=== PATIENT | female | born 1945 | race Caucasian/White ===

== ENCOUNTER 2017-08-23 09:49 | Inpatient (IN) | payer OTHER ==
[2017-08-23 10:07] LABS: PLATELET COUNT 309 10^3/uL (150-400)
--- NOTE | 2017-08-23 10:14 | EDPHY ---
General Narrative: The patient was evaluated and managed by the physician furniture removalist's assistant. I have reviewed this chart and I agree with the findings and plan of care as documented , as indicated by my signature. I am the secondary supervising physician. ( Yeni Townsend) CHIEF COMPLAINT: Weakness, cold symptoms HISTORY OF PRESENT ILLNESS: Patient presents by EMS and is seen at time of arrival. She complains of cold like symptoms with cough, congestion, runny nose and aches. This has been present for 2 weeks. Started while she was in [place], which she return from 1 week ago. She was treated with Zithromax in [place]. Minimal improvement. She also complains of increasing weakness and ongoing difficulty using her legs. The difficulty with her legs is described as a difficult gait. This has been present for nearly 2 years. She has had an MRI in 2016 with no answers. She has ongoing workup for this without any definitive diagnosis. No sudden changes this. No neck pain. No back pain. No difficulty with urination at home. No saddle anesthesia. No retention of bowel or bladder. No other associated complaints or modifying factors. REVIEW OF SYSTEMS: Ten systems reviewed and are negative unless otherwise noted in the HPI PCP: Dr. Zulma Bazzi SPECIALISTS: Dr. Miranda PAST MEDICAL HISTORY: Antiphospholipid, lupus, dyslipidemia PAST SURGICAL HISTORY: No recent surgical history SOCIAL HISTORY: Nonsmoker. Recently travel to [place] FAMILY HISTORY: Noncontributory EXAMINATION General Appearance: Alert, no distress Head: normocephalic, atraumatic Eyes: Pupils equal and round, no conjunctival pallor or injection ENT, Mouth: Mucous membranes moist. Airway patent Neck: Normal inspection, supple, non-tender Respiratory: Lungs are clear to auscultation. No wheezing, rhonchi or crackles. No diminishment Cardiovascular: Regular rate and rhythm. No murmur Gastrointestinal: Abdomen is soft and nontender Back: non-tender, no bony abnormalities Neurological: GCS 15. Cranial nerves 2-12 grossly intact. A&O, nonfocal, unsteady gait. Patellar reflexes symmetric. Strength is symmetric in the arms. Strength is symmetric in the legs at 4/5. Skin: Warm and dry, no rash. No petechiae or purpura Extremities: Nontender, no pedal edema Psychiatric: Mood and affect normal DIFFERENTIAL DIAGNOSES: Including but not limited to influenza, URI, bronchitis, pneumonia, viral syndrome, demyelination, SLE MDM: 9:55 a.m. Cough and cold-like symptoms that have been present for nearly 2 weeks. This is status post treatment with Z-Branden in [place]. She also has increasing weakness , which is been present for 2 years. I reviewed the MRI of her brain from 2016 which is unremarkable for any acute findings. She is in no acute distress at this time. Laboratory studies pending. Chest x-ray pending. Urine pending 11:15 a.m. Patient has ambulated in the emergency department. She is mildly unsteady but this was reportedly baseline and unchanged per patient. She has attempted a urine sample but had diarrhea, thus the urine sample was contaminated. Her laboratory studies reveal no leukocytosis. She has normal renal function electrolytes. She does have a CK that is greater than 5000. She has no chest pain. Her influenza test is pending. Chest x-ray reveals bronchitis with no evidence of pneumonia. I have re-evaluated the patient at this time and she is resting comfortably. I will order IV fluid resuscitation, encourage urine sample and discussed with Dr. Townsend 11:45 a.m. Case discussed with Dr. Townsend. As IV fluid infusing 12:15 p.m. Patient's influenza test is positive for flu A. At this time her oxygenation is 95% on room air. I will discuss with her primary care physician 12:45 p.m. Patient re-evaluated. Vital signs remained stable but she still feels very weak and unable to provide a urine sample. Continue with IV fluid resuscitation and the bladder scan. 1:20 p.m. Case discussed with Dr. Garcia. He will admit the patient to his service for observation care. She is admitted in stable condition. 2:30 p.m. Patient has been evaluated by hospitalist. They are waiting to determine if the patient will stay in patient will be discharged home. At this time she will attempt to urinate again 3:30 p.m. Patient not been able urinate. Bladder scan at this time reveals nearly 700 mL as a urine. Awaiting the determination of her inpatient status. I recommend Uribe catheter placement at this time. 3:45 p.m. Confirm the patient has been admitted to Dr. Silva. The urinary retention will be addressed on the floor per charge nurse. She is admitted in stable condition. SUPERVISION: Patient was independently examined, but I discussed the case with my secondary supervising physician Dr. Townsend ([facility]) - Objective Vital Signs: Initial Vital Signs Temperature (C) 98.1 F 08/23/17 09:49 Heart Rate 76 08/23/17 09:49 Respiratory Rate 18 08/23/17 09:49 Blood Pressure 130/74 H 08/23/17 09:49 O2 Sat (%) 95 08/23/17 09:49 O2 Delivery Mode Room Air Allergies/Adverse Reactions: No Known Allergies Allergy (Verified 08/23/17 09:58) Home Medications: Medication Instructions Recorded Furosemide [Lasix 40 MG (RX)] 40 mg PO DAILY 05/26/12 Hydroxychloroquine Sulfate 200 mg PO BID 05/26/12 [Plaquenil 200 mg (RX)] Olmesartan Medoxomil [Benicar 40 40 mg PO DAILY 05/26/12 mg] Acetaminophen [Tylenol ES 500 mg 500 - 1,000 mg PO TID 08/23/17 (*)] Herbals/Supplements -Info Only 1 ea PO DAILY 08/23/17 Multivitamins [Multivitamin (*)] 1 each PO DAILY 08/23/17 Warfarin Sodium [Coumadin 2.5MG 2.5 mg PO TUTH@08/23/17 (*)] Warfarin Sodium [Coumadin 5MG (*)] 5 mg PO SUMOWEFRSA@08/23/17 amLODIPine BESYLATE [Norvasc 5 mg 5 mg PO DAILY 08/23/17 (*)] Laboratory Results: Laboratory Results 08/23/17 09:50 08/23/17 09:50 Medications Given: Acetaminophen (Tylenol) 650 mg PO Q4HRS PRN PRN Reason: Pain, Mild/Fever, Can Take PO Stop: 02/19/18 13:36 Last Admin: 08/23/17 22:00 Dose: 650 mg Benzonatate (Tessalon Pearles) 100 mg PO TID PRN PRN Reason: Cough, Mild Stop: 02/19/18 21:07 Last Admin: 08/24/17 15:50 Dose: 100 mg Guaifenesin (Mucinex) 1,200 mg PO BID SHAHRIAR Stop: 02/19/18 20:59 Last Admin: 08/24/17 08:44 Dose: 1,200 mg Hydroxychloroquine Sulfate (Plaquenil) 200 mg PO BID SHAHRIAR PRN Reason: Protocol Stop: 09/22/17 20:59 Last Admin: 08/24/17 08:45 Dose: 200 mg Sodium Chloride (Ns) 1,000 mls @ 100 mls/hr IV CONT SHAHRIAR Stop: 02/19/18 13:44 Last Admin: 08/24/17 06:27 Dose: 1,000 mls Olmesartan (Benicar) 40 mg PO DAILY SHAHRIAR Stop: 02/20/18 08:59 Last Admin: 08/24/17 08:45 Dose: 40 mg Warfarin Sodium (Coumadin) 2.5 mg PO TUTH@21 SHAHRIAR Stop: 02/19/18 20:59 Last Admin: 08/23/17 22:00 Dose: 2.5 mg Discontinued Medications Enoxaparin Sodium (Lovenox) 40 mg SC DAILY [facility] Stop: 02/20/18 08:59 Last Admin: 08/24/17 08:45 Dose: 40 mg Sodium Chloride (Ns) 500 mls @ 1,000 mls/hr IV EDNOW ONE PRN Reason: Protocol Stop: 08/23/17 11:44 Last Admin: 08/23/17 11:17 Dose: 500 mls Sodium Chloride (Ns) 1,000 mls @ 0 mls/hr IV EDNOW ONE; Wide Open PRN Reason: Protocol Stop: 08/23/17 12:59 Last Admin: 08/23/17 13:06 Dose: 1,000 mls Sodium Chloride (Ns) 1,000 mls @ 3,000 mls/hr IV ONCE ONE Stop: 08/23/17 13:56 Last Admin: 08/23/17 15:18 Dose: 1,000 mls Oseltamivir Phosphate (Tamiflu) 75 mg PO EDNOW ONE Stop: 08/23/17 13:31 Last Admin: 08/23/17 17:03 Dose: Not Given Departure - Departure Disposition: [facility] Acute Clinical Impression: Influenza A, Urinary retention Condition: Good
[2017-08-23 10:58] LABS: CREATINE KINASE 5340 IU/L (0-156)
[2017-08-23] MEDS ORDERED: NS 500 ML IV ONE (11:15)
[2017-08-23] MEDS ORDERED: NS 1,000 ML IV ONE ×2 (12:58→13:37)
[2017-08-23] MEDS ORDERED: ONDANSETRON DISINTEGRATING 4 MG TAB PO PRN (13:37)
[2017-08-23] MEDS ORDERED: ONDANSETRON 4 MG/2 ML VIAL IVP PRN (13:37)
[2017-08-23] MEDS ORDERED: IPRATROPIUM/ALBUTEROL 3 ML DEYVIAL IH PRN (15:14)
[2017-08-23] MEDS: OSELTAMIVIR PHOSPHATE 75 MG CAP PO ONE ×2 (15:17→17:03)
--- NOTE | 2017-08-23 15:42 | GHP ---
[f rep st] HISTORY AND PHYSICAL DATE OF ADMISSION: 08/23/2017 CHIEF COMPLAINT: Weakness and congestion. HISTORY OF PRESENT ILLNESS: This is a 72-year-old female with a history of well -controlled lupus, who presents with over 2 weeks of various pulmonary and respiratory symptoms. The patient recently traveled to [place] where she developed nasal congestion, headache, and mild cough. She was seen at an Urgent Care in [place] and treated with a Z-Branden. The patient reports some improvement in her symptoms and upon returning home to [place] 7 days prior to this presentation, began developing worsening congestion, headaches, mild nonproductive cough, weakness and lethargy. The patient reports that these symptoms seem to fluctuate a bit in the course of the last 7 days, and ultimately she presented today as they had not entirely resolved. The patient has had some watery diarrhea described as nonbloody. Denies abdominal pain. Denies nausea, vomiting. Denies dysuria, hematuria, rashes, lower extremity edema. Her also has an upper respiratory infection with cough and subjective fevers. Patient denies any history of lung disease or problems. PAST MEDICAL HISTORY: 1. Lupus, well controlled on Plaquenil. 2. Antiphospholipid antibody syndrome on chronic anticoagulation. 3. Dyslipidemia. SOCIAL HISTORY: Occasional alcohol. No tobacco or illicit drugs. FAMILY HISTORY: Positive for Sjogren's in a sister and heart disease. REVIEW OF SYSTEMS: A 10-point review of systems is negative with the exception of that reported in the HPI. PHYSICAL EXAMINATION: VITAL SIGNS: Blood pressure 123/67, heart rate 79, respiratory rate 18, 95% on room air, 36.8. GENERAL: This is an obese appearing middle-aged female in no acute distress. HEENT: Exam is notable for dry mucous membranes. Eye exam is negative for any icterus. CARDIAC: Heart sounds are distant, but regular. PULMONARY: Clear to auscultation bilaterally. GASTROINTESTINAL: Positive bowel sounds. ABDOMEN: Soft and nontender. MUSCULOSKELETAL: Negative for any lower extremity edema. SKIN: Exam is negative for any rashes. NEUROLOGIC: The patient is alert and oriented x3. PSYCHIATRIC: She is pleasant and cooperative on interview and examination. DATA: White count 5.9, hematocrit 46.6, platelets of 308. Creatinine of 0.8, sodium of 141. CK at 5340. Flu A is detected by nasal swab. Chest x-ray, which I personally reviewed and interpreted shows no acute infiltrates or edema. Radiology comments on moderate airways disease. ASSESSMENT AND PLAN: This is a 72-year-old female presenting with weakness and upper respiratory symptoms. 1. Acute influenza A. Based on the patient's reported history, I suspect she is a week into this upper respiratory infection. Will not treat acutely with oseltamivir. Can provide supportive treatment with inhaled beta agonist and Mucinex for cough. 2. Elevated CK. As best I can tell by history this is likely from immobility and lethargy in the home. The patient has received some fluid resuscitation in the emergency department. Will recheck her CK. If trending down no further intervention is necessary as her renal function is normal. 3. Lupus. Will continue patient's home Plaquenil dosing without alteration. 4. Antiphospholipid antibody syndrome. We will continue patient's chronic anticoagulation without variation. 5. Acute Urinary retention - unclear the cause or severity - IVF and bladder scan for straight cath. encourage ambulation. 6. Prophylaxis. Patient is on full-dose anticoagulation. 7. Diet: Regular. DISPOSITION: I expect a less than 2 midnights if the patient's CK is trending down and she is ambulating without difficulty. I have discussed the case with the emergency room physician. Patient will be triaged for observation to the medical floor. /[id number]/MODL MTDD
--- NOTE | 2017-08-23 15:43 | CPEKG ---
Heart Rate: 75 RR Interval: 800 P-R Interval: 228 QRSD Interval: 100 QT Interval: 416 QTC Interval: 465 P Watson: 95 QRS Watson: 30 T Wave Watson: -39 EKG Severity - ABNORMAL ECG - EKG Impression: SINUS RHYTHM EKG Impression: LOW VOLTAGE IN FRONTAL LEADS EKG Impression: NONSPECIFIC T ABNORMALITIES, DIFFUSE LEADS EKG Impression: Artifact Electronically Signed By: Yeni Townsend 23-Aug-2017 16:27:02
[2017-08-23 16:17] LABS: CREATINE KINASE 5381 IU/L (0-156)
[2017-08-23] MEDS: NS 1,000 ML IV SCH (20:59)
[2017-08-23] MEDS: WARFARIN SODIUM 2.5 MG TAB PO SCH (22:00)
[2017-08-23] MEDS: HYDROXYCHLOROQUINE SULFATE 200 MG TAB PO SCH (22:00)
[2017-08-23] MEDS: BENZONATATE 100 MG CAP PO PRN (22:00)
[2017-08-23] MEDS: ACETAMINOPHEN 325 MG TAB PO PRN (22:00)
[2017-08-23] MEDS: guaiFENesin 600 MG TAB.ER PO SCH (22:00)
[2017-08-24 04:35] LABS: PLATELET COUNT 265 10^3/uL (150-400)
[2017-08-24] MEDS: NS 1,000 ML IV SCH (06:27)
[2017-08-24] MEDS: guaiFENesin 600 MG TAB.ER PO SCH ×2 (08:44→19:56)
[2017-08-24] MEDS: HYDROXYCHLOROQUINE SULFATE 200 MG TAB PO SCH ×2 (08:45→19:56)
[2017-08-24] MEDS: OLMESARTAN MEDOXOMIL 20 MG TAB PO SCH (08:45)
[2017-08-24] MEDS ORDERED: ENOXAPARIN 40 MG/0.4 ML SYR SC SCH (09:00)
--- NOTE | 2017-08-24 10:28 | ASMTCASEMG ---
Living Arrangements What is your living Answers: With Partner arrangement? Who do you live with? Type Of Residence What kind of residence do Answers: House you live in? Discharge Plan Comments Coordination Status Comments Notes: Pt is a 72 y/o female admitted for influenxa A, eleveated CK and weakness. Pts is currently also at [facility] for the flu. Pt has been having more falls at home. Needs are TBD at this time. Therapies have been ordered and awaiting recommendations. CM to follow. Plan: TBD Date Signed: 08/24/2017 10:27 AM Electronically Signed By:DEISY Parks
[2017-08-24 11:38] LABS: INR 2.29 (0.83-1.16); PROTIME(PATIENT) 25.2 SEC (12.0-15.0)
[2017-08-24 12:15] LABS: CREATINE KINASE 2120 IU/L (0-156)
--- NOTE | 2017-08-24 14:40 | ASMTCMCOM ---
CM Note CM Note Notes: CM spoke w/ Winsome, daughter regarding d/c POC. CM informed Winsome that PT is recommending SNF at this time. Winsome wanted CM to hold off on speaking to pt about the recommendations. CM provided Winsome with other d/c options such as HC and home w/ supervision. CM provided [facility] blue book and list of skilled and unskilled HC agencies. CM to follow. Plan: TBD Date Signed: 08/24/2017 02:40 PM Electronically Signed By:DEISY Parks
[2017-08-24] MEDS: BENZONATATE 100 MG CAP PO PRN (15:50)
--- NOTE | 2017-08-24 17:02 | HOSPPROG ---
Hospitalist Progress Note Assessment/Plan: #Rhabdomyolysis and elevated Ck Cont IVF #Influenza A -not on tamiflu -resp tate she is doing well #Hypoxemia, resolved -bronchodilators -Mucinex #S/p falls and generalized weakness -PT/OT #HTN, cont to monitor -hold Furosemide and Amlodipine Change to inpatient Subjective: working with PT. Daughter at bedside. resp tate she is doing better. Still with weakness. Good urine output Objective: Vital Signs Temp Pulse Resp BP Pulse Ox 36.6 C 63 17 111/57 L 93 08/24/17 15:53 08/24/17 15:53 08/24/17 07:50 08/24/17 15:53 08/24/17 15:53 Laboratory Results 08/24/17 04:05 08/24/17 04:05 08/23/17 08/24/17 08/25/17 05:59 05:59 05:59 Intake Total 4700 Output Total 1800 Balance 2900 PT 25.2 SEC (12.0-15.0) H 08/24/17 11:05 INR 2.29 (0.83-1.16) H 08/24/17 11:05 - Physical Exam Constitutional: no apparent distress Eyes: PERRL, EOMI Ears, Nose, Mouth, Throat: moist mucous membranes, hearing normal, ears appear normal Cardiovascular: regular rate and rhythym, no murmur, rub, or gallop Respiratory: no respiratory distress, no rales or rhonchi, clear to auscultation Gastrointestinal: normoactive bowel sounds, soft, non-tender abdomen, no palpable masses Skin: warm Musculoskeletal: generalized weakness Neurologic: AAOx3 Psychiatric: interacting appropriately, not anxious, not encephalopathic ICD10 Worksheet Patient Problems: Problems Problem Status Onset Influenza A Acute Urinary retention Acute
--- NOTE | 2017-08-24 17:39 | PDMN ---
Medical Necessity Medical necessity: Change to IP, as of 08/24/17, per MD; los >2 mn for ongoing management/tx of rhabdomyolysis, Influenza A, hypoxemia & generalized weakness s /p falls; admit for further monitoring, IVFs, supportive care & therapies; hx htn, lupus, antiphospholipid antibody syndrome on AC; per progress note & order 08/24/17
[2017-08-24] MEDS: GUAIFENESIN/DM 10 ML UDCUP PO PRN (18:37)
[2017-08-24] MEDS: WARFARIN SODIUM 5 MG TAB PO SCH (19:56)
[2017-08-25 04:54] LABS: CREATINE KINASE 1202 IU/L (0-156)
[2017-08-25 05:02] LABS: INR 2.29 (0.83-1.16); PROTIME(PATIENT) 25.2 SEC (12.0-15.0)
[2017-08-25] MEDS: OLMESARTAN MEDOXOMIL 20 MG TAB PO SCH (10:19)
[2017-08-25] MEDS: guaiFENesin 600 MG TAB.ER PO SCH ×2 (10:19→21:26)
[2017-08-25] MEDS: HYDROXYCHLOROQUINE SULFATE 200 MG TAB PO SCH ×2 (10:19→21:20)
[2017-08-25] MEDS: GUAIFENESIN/DM 10 ML UDCUP PO PRN (14:12)
--- NOTE | 2017-08-25 15:10 | HOSPPROG ---
Hospitalist Progress Note Assessment/Plan: #Rhabdomyolysis and elevated Ck -stop IVF due to cough which she has likely obtained from the IVF -recheck ck in the morning -no renal impairment noted #Influenza A -not on tamiflu -has developed a cough which is likely iatrogenic from IVF #Hypoxemia, resolved -bronchodilators -Mucinex #S/p falls and generalized weakness -PT/OT #HTN, cont to monitor, overall well controlled, off meds -hold Furosemide and Amlodipine Cont inpatient will likely need SNF Subjective: has developed a cough. no SOB. On RA. No pedal edema. Urinating well. Objective: Vital Signs Temp Pulse Resp BP Pulse Ox 36.7 C 67 18 121/67 H 95 08/25/17 08:00 08/25/17 08:00 08/25/17 08:00 08/25/17 08:00 08/25/17 08:00 Laboratory Results 08/25/17 04:12 08/24/17 08/25/17 08/26/17 05:59 05:59 05:59 Intake Total 550 Balance 550 PT 25.2 SEC (12.0-15.0) H 08/25/17 04:12 INR 2.29 (0.83-1.16) H 08/25/17 04:12 - Physical Exam Constitutional: no apparent distress Eyes: PERRL Ears, Nose, Mouth, Throat: moist mucous membranes, hearing normal Cardiovascular: regular rate and rhythym, No edema Respiratory: no respiratory distress, other (coarse) Gastrointestinal: normoactive bowel sounds, soft, non-tender abdomen Skin: warm Musculoskeletal: generalized weakness Neurologic: AAOx3 Psychiatric: interacting appropriately, not anxious, not encephalopathic ICD10 Worksheet Patient Problems: Problems Problem Status Onset Influenza A Acute Urinary retention Acute
--- NOTE | 2017-08-25 15:18 | ASMTCMCOM ---
CM Note CM Note Notes: CM met w/ pt for dispo planning. CM presented recommendations of PT and OT. Pt would like to d/c with [facility]. Referral made to [facility] and they are able to accept. CM spoke w/ Winsome, daughter regarding d/c plans. Daughter is agreeable to pt discharging home w/ HC. Plan: home w/ [facility], PT and OT Date Signed: 08/25/2017 03:18 PM Electronically Signed By:DEISY Parks
[2017-08-25] MEDS: WARFARIN SODIUM 2.5 MG TAB PO SCH (21:20)
[2017-08-25] MEDS: guaiFENesin/CODEINE PHOS 10 ML UDCUP PO PRN (21:24)
[2017-08-26 05:36] LABS: PLATELET COUNT 248 10^3/uL (150-400)
[2017-08-26 05:44] LABS: CREATINE KINASE 542 IU/L (0-156)
[2017-08-26] MEDS: OLMESARTAN MEDOXOMIL 20 MG TAB PO SCH (09:14)
[2017-08-26] MEDS: HYDROXYCHLOROQUINE SULFATE 200 MG TAB PO SCH ×2 (09:14→21:28)
[2017-08-26] MEDS: guaiFENesin 600 MG TAB.ER PO SCH ×2 (09:15→21:30)
[2017-08-26] MEDS: GUAIFENESIN/DM 10 ML UDCUP PO PRN (09:15)
[2017-08-26] MEDS ORDERED: PROTOCOL POTASSIUM 1 DOSE MISC PRN ×2 (11:30→12:02)
[2017-08-26] MEDS ORDERED: POTASSIUM CL 20 MEQ TAB ONE (11:44)
[2017-08-26] MEDS ORDERED: POTASSIUM CL 10 MEQ TAB PO ONE (12:25)
[2017-08-26] MEDS: ACETAMINOPHEN 325 MG TAB PO PRN (12:25)
[2017-08-26] MEDS ORDERED: PROTOCOL MAGNESIUM 1 DOSE IV PRN (12:54)
[2017-08-26] MEDS ORDERED: FUROSEMIDE 20 MG TAB PO ONE ×2 (14:14)
--- NOTE | 2017-08-26 14:17 | HOSPPROG ---
Hospitalist Progress Note Assessment/Plan: #Rhabdomyolysis and elevated Ck -off IVF -no renal impairment noted #Influenza A -not on tamiflu -has developed a cough which is likely iatrogenic from IVF #Cough, likely from IVF #Hypoxemia, resolved -bronchodilators -Mucinex #S/p falls and generalized weakness -PT/OT #HTN, cont to monitor, overall well controlled, off meds -Hold amlodipine Cont inpatient will likely d/c with [facility] tomorrow Will provide one time dose of Lasix today and consider restarting home dose Cont to hold amlodipine Subjective: feels better. + cough. + pedal edema. Has been of diuretics Objective: Vital Signs Temp Pulse Resp BP Pulse Ox 36.6 C 65 16 118/66 91 L 08/26/17 08:00 08/26/17 08:00 08/26/17 08:00 08/26/17 09:14 08/26/17 08:00 Laboratory Results 08/26/17 04:41 08/26/17 04:41 08/25/17 08/26/17 08/27/17 05:59 05:59 05:59 Intake Total 550 Balance 550 PT 25.2 SEC (12.0-15.0) H 08/25/17 04:12 INR 2.29 (0.83-1.16) H 08/25/17 04:12 - Physical Exam Constitutional: no apparent distress Eyes: PERRL Ears, Nose, Mouth, Throat: moist mucous membranes, hearing normal Cardiovascular: regular rate and rhythym, edema Respiratory: reduced air movement Gastrointestinal: normoactive bowel sounds, soft, non-tender abdomen Skin: warm Musculoskeletal: generalized weakness Neurologic: AAOx3 Psychiatric: interacting appropriately, not anxious, not encephalopathic, thought process linear Lymph, Heme, Immunologic: No petechiae ICD10 Worksheet Patient Problems: Problems Problem Status Onset Influenza A Acute Urinary retention Acute
[2017-08-26] MEDS ORDERED: FUROSEMIDE 40 MG TAB PO ONE (14:30)
--- NOTE | 2017-08-26 14:56 | ASMTCMCOM ---
CM Note CM Note Notes: Chart reviewed. Spoke with daughter Montse who is from out of town. Relayed discharge plan, recommendation is that she or her sister help develop legal plan for future medical decisions, plan for this patient is home with [facility] when medically stable. CM to follow. Date Signed: 08/26/2017 02:55 PM Electronically Signed By:Priya De La Cruz RN
[2017-08-26] MEDS: guaiFENesin/CODEINE PHOS 10 ML UDCUP PO PRN (21:28)
[2017-08-26] MEDS: WARFARIN SODIUM 5 MG TAB PO SCH (21:28)
[2017-08-27 05:39] LABS: CREATINE KINASE 229 IU/L (0-156)
[2017-08-27 07:34] VITALS: BP 139/77; PULSE 66; RESP 16; TEMP 97.9; O2SAT 93
[2017-08-27] MEDS: guaiFENesin 600 MG TAB.ER PO SCH (08:50)
[2017-08-27] MEDS: OLMESARTAN MEDOXOMIL 20 MG TAB PO SCH (08:50)
[2017-08-27] MEDS: HYDROXYCHLOROQUINE SULFATE 200 MG TAB PO SCH (08:50)
[2017-08-27] MEDS ORDERED: POTASSIUM CL 10 MEQ TAB PO ONE (10:38)
[2017-08-27] MEDS ORDERED: FUROSEMIDE 40 MG/4 ML VIAL IVP ONE (14:46)
--- NOTE | 2017-08-27 14:56 | PDDCSUM ---
Discharge Summary Discharge Summary: 72 yo female admitted with rhabdomyolysis. treated with ivf. resolved. had some volume overload as lasix was held and ivf given. home meds have been restarted amlodipine was held will f/u with pcp next week d/c with [facility] #Rhabdomyolysis and elevated Ck -resolved #Influenza A -not on tamiflu as symptoms started several weeks ago #Cough, likely from IVF, much improved with diuretics #Hypoxemia, resolved -bronchodilators -Mucinex #S/p falls and generalized weakness -PT/OT #HTN, cont to monitor, overall well controlled, off meds -Hold amlodipine #chronic AC: cont coumadin. Exam: VSS, RA NAD AAOX3 RRR COARSE BREATH SOUNDS S/NT/ND 1 +EDEMA MEDS: SEE MED REC F/U: PER ABOVE TOTAL CARE TIME SPENT ON D/C IS 40 MINS
--- NOTE | 2017-08-27 15:04 | PDIAF ---
- Diagnosis Diagnosis: rhabomyolysis Code Status: Full Code - Medication Management Discharge Medications: Medications to Continue on Transfer Furosemide [Lasix 40 MG (*)] 40 mg PO DAILY 05/26/12 [Last Taken 08/22/17] Hydroxychloroquine Sulfate [Plaquenil 200 mg (*)] 200 mg PO BID 05/26/12 [Last Taken 08/23/17] Olmesartan Medoxomil [Benicar 40 mg] 40 mg PO DAILY 05/26/12 [Last Taken ] Acetaminophen [Tylenol ES 500 mg (*)] 500 - 1,000 mg PO TID 08/23/17 [Last Taken 08/22/17] Herbals/Supplements -Info Only 1 ea PO DAILY 08/23/17 [Last Taken Unknown] Multivitamins [Multivitamin (*)] 1 each PO DAILY 08/23/17 [Last Taken 08/22/17] Warfarin Sodium [Coumadin 2.5MG (*)] 2.5 mg PO TUTH@08/23/17 [Last Taken 06/25] Warfarin Sodium [Coumadin 5MG (*)] 5 mg PO SUMOWEFRSA@08/23/17 [Last Taken ] guaiFENesin [Mucinex 600 MG (*)] 1,200 mg PO BID #30 tab.er 08/27/17 [Last Taken Unknown] Discharge Medications: Refer to the Discharge Home Medication list for PRN reason. - Orders Services needed: Home Care, Physical Therapy, Occupational Therapy Home Care Face to Face: I certify that this patient was under my care and that I had the required [id number] encounter meeting the encounter requirements on the discharge day. My findings support the fact that the patient is homebound as defined in Home Care Face to Face Continued: CMS Chapter 7 Medicare Benefits Manual 30.1.1 , The condition of the patient is such that there exists a normal inability to leave home and consequently, leaving home would require a considerable and taxing effort. Isolation Type: Droplet Isolation Diet Recommendation: no restrictions on diet Diet Texture: Regular Texture Diet - Follow Up Care Current Providers and Referrals: Patient,NotPresent [Unknown] - As per Instructions
--- NOTE | 2017-08-27 17:26 | ASDISCHSUM ---
Discharge Information Plan Status:Home with Home Health Medically Cleared to Leave: Discharge Date:08/27/2017 03:30 PM CM D/C Disposition:Home Health Service ADT D/C Disposition:Home Health Service Projected Discharge Date:08/27/2017 11:00 AM Transportation at D/C:Family Discharge Delay Reason: Follow-Up Date:08/27/2017 11:00 AM Discharge Slot: Final Diagnosis: Placement Information Referral Type:*Home Health Care Services Referral ID:[id number] Provider Name:[facility] Address 1[address] Address 2: City:[place] Selection Factors: State:[place] Patient Contact Information Contact Name:KHUSHBOO Relationship: Address:[address] City:[place] Alternate Phone: State/Zip Code:[place] [address] Email: Financial Information Financial Class: Primary Plan Desc:MEDICARE INPATIENT Primary Plan Number:[id number] Secondary Plan Desc:NILESHMAXIMILIANO [facility] Secondary Plan Number:[id number] Assessment Information [facility] Initial CM Assessment Living Arrangements What is your living Answers: With Partner arrangement? Who do you live with? Type Of Residence What kind of residence do Answers: House you live in? Discharge Plan Comments Coordination Status Comments Notes: Pt is a 72 y/o female admitted for influenxa A, eleveated CK and weakness. Pts is currently also at [facility] for the flu. Pt has been having more falls at home. Needs are TBD at this time. Therapies have been ordered and awaiting recommendations. CM to follow. Plan: TBD Date Signed: 08/24/2017 10:27 AM Electronically Signed By:DEISY Parks [facility] CM Progress Note CM Note MADDIE Note Notes: CM spoke w/ jame Schumacher regarding d/c POC. CM informed Winsome that PT is recommending SNF at this time. Winsome wanted CM to hold off on speaking to pt about the recommendations. CM provided Winsome with other d/c options such as HC and home w/ supervision. CM provided [facility] blue book and list of skilled and unskilled HC agencies. CM to follow. Plan: TBD Date Signed: 08/24/2017 02:40 PM Electronically Signed By:DEISY Parks [facility] MADDIE Progress Note MADDIE Angela CM Note Notes: CM met w/ pt for dispo planning. CM presented recommendations of PT and OT. Pt would like to d/c with [facility]. Referral made to [facility] and they are able to accept. CM spoke w/ jame Schumacher regarding d/c plans. Daughter is agreeable to pt discharging home w/ HC. Plan: home w/ [facility], PT and OT Date Signed: 08/25/2017 03:18 PM Electronically Signed By:DEISY Parks [facility] MADDIE Progress Note MADDIE Angela CM Note Notes: Chart reviewed. Spoke with daughter Montse who is from out of town. Relayed discharge plan, recommendation is that she or her sister help develop legal plan for future medical decisions, plan for this patient is home with [facility] when medically stable. MADDIE to follow. Date Signed: 08/26/2017 02:55 PM Electronically Signed By:Priya De La Cruz RN Case Management Discharge Plan Note Case Management Discharge Discharge Order Complete? Answers: Yes Patient to Obtain Answers: via Family Medications Transportation Arranged Answers: Family/Friends Family Notified Answers: Yes Discharge Comments Notes: Jareth met w/ Pt. and daughter Winsome in Pt's room today. Discussed safety concerns and planning since Pt. a bit unsteady and having a hard time getting out of her chair independently today. Winsome states colleague CM provided list of unskilled nursing agencies. Discussed skilled vs unskilled providers. Plan for d/c home today with [facility] PT and OT. Family good with plan. Winsome plans to be at home with parents tonight at the least. Pt's also inpatient at [facility] right now and also going home today. Jareth contacted Jazlyn Faustin at [facility] to let her know that Pt. is d/cing today. Jazlyn states all set. Sent [employer] referral. Date Signed: 08/27/2017 02:11 PM Electronically Signed By:Guerline Sargent LCSW Intervention Information Intervention Type:*LYNNE-Signed Date of Service:08/24/2017 10:12 AM Patient Type:Observation Staff Member:Melba Saha Hours: Discipline: Severity: Comment:
== END 2017-08-27 15:30 | disposition home health service (06) | DRG 194 ==
LOC: EDUNIT# → F2W 16:06 → OBSVTOIN 08-24 17:08 → F3E 08-25 16:31
PROVIDERS: ADMIT Internal Medicine; ATTEND Internal Medicine
DX: J10.1 Influenza due to other identified influenza virus with other respiratory manifestations (principal); M62.82 Rhabdomyolysis; R33.9 Retention of urine, unspecified; R09.02 Hypoxemia; M32.9 Systemic lupus erythematosus, unspecified; D68.62 Lupus anticoagulant syndrome; E78.5 Hyperlipidemia, unspecified; Z79.01 Long term (current) use of anticoagulants; Z91.81 History of falling
CPT/HCPCS: 97110-GP; 97116-GP; 97161-GP; 97165-GO; 97530-GO; 97530-GP; 97535-GO; G0378; G8978-GP-CJ; G8979-GP-CI; G8987-GO-CJ; G8988-GO-CI; J1650